=== PATIENT | male | born 1960 | race African-American/Black ===

== ENCOUNTER 2017-04-16 20:35 | Emergency (ER) | payer MEDICAID ==
[2017-04-16 21:20] LABS: APPEARANCE CLEAR (CLEAR); BILIRUBIN NEGATIVE (NEGATIVE); COLOR YELLOW (YELLOW); GLUCOSE NEGATIVE (NEGATIVE); KETONE NEGATIVE (NEGATIVE); LEUKOCYTE ESTERASE NEGATIVE (NEGATIVE); NITRITE NEGATIVE (NEGATIVE); PROTEIN NEGATIVE (NEGATIVE); UROBILINOGEN NORMAL (NORMAL)
[2017-04-16 21:31] LABS: BASOPHILS 0.3 % (0-2); EOSINOPHILS 1.9 % (0-7); HEMATOCRIT 37.8 % (42.0-54.0); HEMOGLOBIN 13.4 g/dL (13.5-17.5); IMMATURE GRANULOCYTES 0.1 % (0-5); LYMPHOCYTES 34.1 % (15-50); MCH 30.7 pg (26.0-34.0); MCHC 35.4 g/dL (31.0-37.0); MCV 86.7 fL (80.0-100.0); MEAN PLATELET VOLUME 9.6 fL (7.4-10.4); MONOCYTES 9.4 % (2-11); NEUTROPHILS 54.2 % (40-80); PLATELET COUNT 173 10x3/uL (130-400); RBC 4.36 10x6/uL (4.20-6.10); WBC 6.9 10x3/uL (4.8-10.8)
[2017-04-16 21:44] LABS: ALBUMIN 3.4 g/dL (3.4-5.0); BILIRUBIN - TOTAL 0.43 mg/dL (0.2-1.3); CALCIUM 8.6 mg/dL (8.5-10.1); CREATININE - SERUM 1.6 mg/dL (0.6-1.3)
== END 2017-04-17 00:06 | disposition home or self-care (01) ==
LOC: D.ER 20:35
PROVIDERS: Family Medicine
DX: R10.13 Epigastric pain (principal); F17.200 Nicotine dependence, unspecified, uncomplicated

== ENCOUNTER → 2017-05-30 15:20 | Outpatient (CLI) | payer MEDICAID | END | disposition home or self-care (01) | LOC: D.LABREF 15:20 | DX: K64.0 First degree hemorrhoids (principal); D12.5 Benign neoplasm of sigmoid colon; K59.00 Constipation, unspecified; K58.9 Irritable bowel syndrome, unspecified; R10.30 Lower abdominal pain, unspecified; Z12.11 Encounter for screening for malignant neoplasm of colon ==

== ENCOUNTER 2017-11-05 13:01 | Emergency (ER) | payer OTHER ==
[2017-11-05 13:38] LABS: BASOPHILS 0.6 % (0-2); EOSINOPHILS 2.9 % (0-7); HEMATOCRIT 36.8 % (42.0-54.0); HEMOGLOBIN 12.6 g/dL (13.5-17.5); IMMATURE GRANULOCYTES 0.2 % (0-5); LYMPHOCYTES 37.8 % (15-50); MCH 29.6 pg (26.0-34.0); MCHC 34.2 g/dL (31.0-37.0); MCV 86.6 fL (80.0-100.0); MEAN PLATELET VOLUME 9.1 fL (7.4-10.4); MONOCYTES 8.9 % (2-11); NEUTROPHILS 49.6 % (40-80); PLATELET COUNT 163 10x3/uL (130-400); RBC 4.25 10x6/uL (4.20-6.10); RDW 13.4 % (11.5-14.5); WBC 5.3 10x3/uL (4.8-10.8)
[2017-11-05 14:02] LABS: ALBUMIN 3.3 g/dL (3.4-5.0); ALKALINE PHOSPHATASE 56 U/L (46-116); ALT (SGPT) 16 U/L (10-68); BILIRUBIN - TOTAL 0.71 mg/dL (0.2-1.3); CALC OSMOLALITY 245 mosm/kg (275-300); CALCIUM 9.1 mg/dL (8.5-10.1); CARBON DIOXIDE 26.5 mmol/L (21.0-32.0); CHLORIDE - SERUM 105 mmol/L (98-107); CREATININE - SERUM 1.1 mg/dL (0.6-1.3); GLUCOSE 100 mg/dL (74-106); POTASSIUM - SERUM 3.5 mmol/L (3.5-5.1); PROTEIN - SERUM 6.5 g/dL (6.4-8.2); SODIUM 122 mmol/L (136-145); UREA NITROGEN 13 mg/dL (7-18); eGFR NON AFRICAN AMERICAN 73 mL/min (90-120)
[2017-11-05 14:12] LABS: CREATINE KINASE 241 UL (21-232); TROPONIN-I < 0.017 ng/mL (0.000-0.060)
== END 2017-11-05 17:50 | disposition home or self-care (01) ==
LOC: D.ER 13:01
PROVIDERS: Emergency Medicine
DX: R07.9 Chest pain, unspecified (principal); I10 Essential (primary) hypertension; F17.200 Nicotine dependence, unspecified, uncomplicated

== ENCOUNTER 2017-12-12 23:04 | Emergency (ER) | payer OTHER ==
[2017-12-12 23:42] LABS: APPEARANCE CLEAR (CLEAR); BILIRUBIN NEGATIVE (NEGATIVE); COLOR YELLOW (YELLOW); GLUCOSE NEGATIVE (NEGATIVE); KETONE NEGATIVE (NEGATIVE); NITRITE NEGATIVE (NEGATIVE); PROTEIN NEGATIVE (NEGATIVE); SPECIFIC GRAVITY 1.005 (1.005-1.020); UROBILINOGEN NORMAL (NORMAL)
[2017-12-12 23:44] LABS: BACTERIA FEW /hpf (NONE SEEN); EPITHELIAL CELLS 0-5 /hpf (0-5); MUCUS <1+ /lpf (NONE SEEN); RED CELLS - URINE 0-5 /hpf (0-5); WHITE CELLS - URINE 0-5 /hpf (0-5)
[2017-12-13 00:34] LABS: BASOPHILS 0.6 % (0-2); EOSINOPHILS 2.8 % (0-7); HEMATOCRIT 37.1 % (42.0-54.0); HEMOGLOBIN 12.8 g/dL (13.5-17.5); IMMATURE GRANULOCYTES 0.2 % (0-5); LYMPHOCYTES 37.7 % (15-50); MCHC 34.5 g/dL (31.0-37.0); MCV 86.9 fL (80.0-100.0); MEAN PLATELET VOLUME 9.4 fL (7.4-10.4); MONOCYTES 10.6 % (2-11); NEUTROPHILS 48.1 % (40-80); PLATELET COUNT 193 10x3/uL (130-400); RBC 4.27 10x6/uL (4.20-6.10); RDW 13.4 % (11.5-14.5); WBC 6.5 10x3/uL (4.8-10.8)
[2017-12-13 00:42] LABS: ANION GAP 11.8 mmol/L (8-16); BILIRUBIN - TOTAL 0.41 mg/dL (0.2-1.3); CALCIUM 8.3 mg/dL (8.5-10.1); CARBON DIOXIDE 28.6 mmol/L (21.0-32.0); CREATININE - SERUM 1.2 mg/dL (0.6-1.3); POTASSIUM - SERUM 3.4 mmol/L (3.5-5.1); PROTEIN - SERUM 6.7 g/dL (6.4-8.2)
== END 2017-12-13 04:05 | disposition home or self-care (01) ==
LOC: D.ER 23:04
PROVIDERS: Family Medicine
DX: K59.00 Constipation, unspecified (principal); I10 Essential (primary) hypertension; F17.200 Nicotine dependence, unspecified, uncomplicated

== ENCOUNTER 2017-12-14 02:26 | Emergency (ER) | payer OTHER | END 2017-12-14 07:16 | disposition home or self-care (01) | LOC: D.ER 02:26 | DX: K59.00 Constipation, unspecified (principal); I10 Essential (primary) hypertension ==

== ENCOUNTER 2019-02-15 15:03 | Emergency (ER) | payer OTHER ==
[2019-02-15 15:26] VITALS: BP 168/88; BMI 25.8
[2019-02-20 15:12] LABS: EHRLICHIA CHAFF IGG Negative (Neg:<1:64); EHRLICHIA CHAFF IGM Negative (Neg:<1:20); HGE IGG TITER Negative (Neg:<1:64); HGE IGM TITER Negative (Neg:<1:20)
[2019-02-22 07:18] LABS: F. TULARENSIS - IGG See below: (Negative)
[2019-04-04 10:28] LABS: F. TULARENSIS - IGM Negative (Negative)
[2019-04-04 13:24] LABS: RMSF IGM 0.55
== END 2019-02-15 16:45 | disposition left against medical advice (07) ==
LOC: D.ER 15:03
PROVIDERS: Family Medicine
DX: S20.361A Insect bite (nonvenomous) of right front wall of thorax, initial encounter (principal); W57.XXXA Bitten or stung by nonvenomous insect and other nonvenomous arthropods, initial encounter; Y93.89 Activity, other specified; Y92.89 Other specified places as the place of occurrence of the external cause

== ENCOUNTER 2019-07-30 14:17 | Emergency (ER) | payer MEDICAID ==
[~2019-07-30] VITALS: Ht 167.6 cm; Wt 72.7 kg
[2019-07-30 14:23] VITALS: BP 155/90; Ht 167.6 cm; Wt 72.7 kg
[2019-07-30] MEDS ORDERED: CLOBETASOL PROP15 GM TP (15:05)
[2019-07-30] MEDS ORDERED: DOXYCYCLINE HY100 M2 PO (15:15)
== END 2019-07-30 15:16 | disposition home or self-care (01) ==
LOC: D.ER 14:17
DX: R21 Rash and other nonspecific skin eruption (principal); I10 Essential (primary) hypertension; Z72.0 Tobacco use

== ENCOUNTER → 2020-04-28 11:35 | Outpatient (CLI) | payer OTHER ==
[2019-07-30 14:23] VITALS: BMI 25.8
[~2020-04-28 11:35] MED LIST: CLOBETASOL PROP15 GM TP; DOXYCYCLINE HY100 M2 PO
== END | disposition home or self-care (01) ==
LOC: D.RT 11:30
PROVIDERS: ATTEND Nurse Practitioner
DX: R05 Cough (principal)

== ENCOUNTER 2020-11-16 18:56 | Emergency (ER) | payer MEDICAID ==
[~2020-11-16] VITALS: Ht 167.6 cm; Wt 72.7 kg
[~2020-11-16 18:56] MED LIST changes: +CATAPRES0.1 MG PO
[2020-11-16 18:59] VITALS: Ht 167.6 cm; Wt 72.7 kg
[2020-11-16 19:23] LABS: BASOPHILS 0.3 % (0-2); EOSINOPHILS 1.2 % (0-7); HEMATOCRIT 37.4 % (42.0-54.0); HEMOGLOBIN 13.1 g/dL (13.5-17.5); LYMPHOCYTE ABS# 1.73 10x3/uL (1.32-3.57); LYMPHOCYTES 29.9 % (15-50); MCH 30.4 pg (26.0-34.0); MCV 86.8 fL (80.0-100.0); MEAN PLATELET VOLUME 9.1 fL (7.4-10.4); MONOCYTES 7.4 % (2-11); NEUTROPHIL ABS# 3.53 10x3/uL (1.78-5.38); NEUTROPHILS 61.2 % (40-80); PLATELET COUNT 199 10x3/uL (130-400); RBC 4.31 10x6/uL (4.20-6.10); RDW 13.3 % (11.5-14.5); WBC 5.8 10x3/uL (4.8-10.8)
[2020-11-16 19:31] LABS: CALC OSMOLALITY 277 mosm/kg (275-300); CALCIUM 8.9 mg/dL (8.5-10.1); CARBON DIOXIDE 30.5 mmol/L (21.0-32.0); CHLORIDE - SERUM 106 mmol/L (98-107); CREATININE - SERUM 1.3 mg/dL (0.6-1.3); GLUCOSE 114 mg/dL (74-106); POTASSIUM - SERUM 3.5 mmol/L (3.5-5.1); SODIUM 140 mmol/L (136-145); UREA NITROGEN 8 mg/dL (7-18); eGFR NON AFRICAN AMERICAN 60 mL/min (90-120)
[2020-11-16 19:39] LABS: ALBUMIN 3.5 g/dL (3.4-5.0); ALKALINE PHOSPHATASE 52 U/L (30-120); ALT (SGPT) 17 U/L (10-68); AMYLASE - SERUM 93 U/L (25-115); BILIRUBIN - TOTAL 0.69 mg/dL (0.2-1.3); LIPASE 96 U/L (73-393); PROTEIN - SERUM 6.7 g/dL (6.4-8.2)
[2020-11-16 19:46] LABS: TROPONIN-I < 0.017 ng/mL (0.000-0.060)
[2020-11-16 19:53] LABS: BILIRUBIN NEGATIVE (NEGATIVE); KETONE NEGATIVE (NEGATIVE); NITRITE NEGATIVE (NEGATIVE); UROBILINOGEN NORMAL mg/dL (< 2)
[2020-11-16 19:58] LABS: BACTERIA NONE SEEN HPF (NONE SEEN); SQUAMOUS EPITHELIAL NONE SEEN HPF (0-4); WHITE CELLS - URINE NONE SEEN HPF (0-1)
[2020-11-16] MEDS ORDERED: CHRONULAC30 ML PO (21:51)
[2020-11-16 23:18] VITALS: BP 141/89
== END 2020-11-16 23:18 | disposition home or self-care (01) ==
LOC: D.ER 18:56
PROVIDERS: Family Medicine
DX: K59.00 Constipation, unspecified (principal); I73.00 Raynaud's syndrome without gangrene; I10 Essential (primary) hypertension; Z72.0 Tobacco use

== ENCOUNTER 2020-12-22 18:33 | Emergency (ER) | payer OTHER ==
[~2020-12-22] VITALS: Ht 167.6 cm; Wt 72.3 kg
[~2020-12-22 18:33] MED LIST changes: +CHRONULAC30 ML PO
[2020-12-22 18:38] VITALS: Ht 167.6 cm; Wt 72.3 kg
[2020-12-22 21:37] VITALS: BP 174/81
== END 2020-12-22 21:38 | disposition home or self-care (01) ==
LOC: D.ER 18:33
DX: I10 Essential (primary) hypertension (principal); R51.9 Headache, unspecified; Z72.0 Tobacco use

== ENCOUNTER 2021-01-18 01:57 | Emergency (ER) | payer OTHER ==
[~2021-01-18] VITALS: Ht 167.6 cm; Wt 72.3 kg
[2021-01-18 02:00] VITALS: Ht 167.6 cm; Wt 72.3 kg
[2021-01-18 02:37] LABS: CALC OSMOLALITY 284 mosm/kg (275-300); CALCIUM 8.1 mg/dL (8.5-10.1); CARBON DIOXIDE 26.7 mmol/L (21.0-32.0); CHLORIDE - SERUM 109 mmol/L (98-107); CREATININE - SERUM 1.2 mg/dL (0.6-1.3); GLUCOSE 108 mg/dL (74-106); POTASSIUM - SERUM 3.3 mmol/L (3.5-5.1); SODIUM 143 mmol/L (136-145); UREA NITROGEN 10 mg/dL (7-18); eGFR NON AFRICAN AMERICAN 66 mL/min (90-120)
[2021-01-18 02:42] LABS: BASOPHILS 1.2 % (0-2); HEMATOCRIT 36.7 % (42.0-54.0); HEMOGLOBIN 12.7 g/dL (13.5-17.5); LYMPHOCYTES 34.2 % (15-50); MCH 30.3 pg (26.0-34.0); MCHC 34.5 g/dL (31.0-37.0); MCV 87.9 fL (80.0-100.0); MEAN PLATELET VOLUME 7.6 fL (7.4-10.4); MONOCYTES 16.9 % (2-11); NEUTROPHILS 43.7 % (40-80); PLATELET COUNT 228 10x3/uL (130-400); RBC 4.18 10x6/uL (4.20-6.10); RDW 13.9 % (11.5-14.5); WBC 4.6 10x3/uL (4.8-10.8)
[2021-01-18 02:46] LABS: ALBUMIN 3.3 g/dL (3.4-5.0); ALKALINE PHOSPHATASE 52 U/L (30-120); ALT (SGPT) 19 U/L (10-68); BILIRUBIN - TOTAL 0.44 mg/dL (0.2-1.3); PROTEIN - SERUM 6.4 g/dL (6.4-8.2); TROPONIN-I < 0.017 ng/mL (0.000-0.060)
[2021-01-18] MEDS ORDERED: VIBRAMYCIN 100100 MG PO (03:27)
[2021-01-18] MEDS ORDERED: TESSALON PERLE100 MG PO (03:27)
[2021-01-18 03:34] VITALS: BP 145/92
[2021-01-18] MEDS ORDERED: CHRONULAC30 ML PO (22:33)
== END 2021-01-18 03:30 | disposition home or self-care (01) ==
LOC: D.ER 01:57
PROVIDERS: Student in an Organized Health Care Education/Training Program
DX: I10 Essential (primary) hypertension (principal); J18.9 Pneumonia, unspecified organism; R22.43 Localized swelling, mass and lump, lower limb, bilateral

== ENCOUNTER 2021-01-18 21:09 | Emergency (ER) | payer OTHER ==
[~2021-01-18] VITALS: Ht 167.6 cm; Wt 72.1 kg
[~2021-01-18 21:09] MED LIST changes: +TESSALON PERLE100 MG PO; +VIBRAMYCIN 100100 MG PO
[2021-01-18 21:25] VITALS: BP 148/97; Ht 167.6 cm; Wt 72.1 kg
[2021-01-18] MEDS ORDERED: CHRONULAC30 ML PO (22:33)
== END 2021-01-18 23:40 | disposition home or self-care (01) ==
LOC: D.ER 21:09
DX: R51.9 Headache, unspecified (principal); I10 Essential (primary) hypertension; R11.0 Nausea; Z72.0 Tobacco use; K59.00 Constipation, unspecified

== ENCOUNTER 2021-02-28 20:19 | Emergency (ER) | payer OTHER ==
[~2021-02-28] VITALS: Ht 167.6 cm; Wt 72.3 kg
[2021-02-28 20:28] VITALS: BP 169/96; Ht 167.6 cm; Wt 72.3 kg
[2021-02-28 22:03] LABS: EOSINOPHILS 2.6 % (0-7); HEMATOCRIT 37.8 % (42.0-54.0); HEMOGLOBIN 12.7 g/dL (13.5-17.5); LYMPHOCYTES 39.9 % (15-50); MCH 29.9 pg (26.0-34.0); MCHC 33.6 g/dL (31.0-37.0); MCV 88.9 fL (80.0-100.0); MEAN PLATELET VOLUME 7.3 fL (7.4-10.4); MONOCYTES 9.6 % (2-11); NEUTROPHILS 46.9 % (40-80); PLATELET COUNT 246 10x3/uL (130-400); RBC 4.25 10x6/uL (4.20-6.10); RDW 13.3 % (11.5-14.5); WBC 6.2 10x3/uL (4.8-10.8)
[2021-02-28 22:11] LABS: ANION GAP 8.5 mmol/L (8-16); CALCIUM 8.7 mg/dL (8.5-10.1); CARBON DIOXIDE 31.4 mmol/L (21.0-32.0); CREATININE - SERUM 1.3 mg/dL (0.6-1.3); POTASSIUM - SERUM 3.9 mmol/L (3.5-5.1)
[2021-02-28 22:24] LABS: ALBUMIN 3.3 g/dL (3.4-5.0); BILIRUBIN - TOTAL 0.37 mg/dL (0.2-1.3); PROTEIN - SERUM 6.5 g/dL (6.4-8.2)
[2021-02-28 22:26] LABS: BILIRUBIN NEGATIVE (NEGATIVE); KETONE NEGATIVE mg/dL (< 1+); NITRITE NEGATIVE (NEGATIVE); UROBILINOGEN NORMAL mg/dL (< 2); WHITE CELLS - URINE <1 HPF (0-1)
[2021-02-28] MEDS ORDERED: COLACE100 MG PO (22:56)
== END 2021-02-28 23:12 | disposition home or self-care (01) ==
LOC: D.ER 20:19
PROVIDERS: Family Medicine
DX: M54.9 Dorsalgia, unspecified (principal); R10.9 Unspecified abdominal pain; I10 Essential (primary) hypertension; Z72.0 Tobacco use